=== PATIENT | female | born 1990 | race Caucasian/White ===

== ENCOUNTER 2016-09-19 18:59 | Emergency (ER) | payer BC, OTHER ==
[2016-09-19 19:15] VITALS: BP 109/64
[2016-09-19] MEDS ORDERED: Tetracaine 0.5% OPTH.SOL 4 ML* 1 DROP BTL RIGHT EYE ONE (19:17)
[2016-09-19] MEDS ORDERED: Fluorescein Sodium TOPICAL* 1 MG TEST ONE (19:51)
--- NOTE | 2016-09-19 20:02 | UC ---
Eye Complaint HPI - HPI Summary HPI Summary: 26 yo female got DUONG [employer] splashed in eyes at work today about 540PM . Immediately flushed both eyes left eye stopped burning after flush. Burning eye pain persisted in right eye and she came here. slightly blurred vision no photophobia or FB sensation - History of Current Complaint Chief Complaint: UCEye Stated Complaint: IRRITANT IN EYES Time Seen by Provider: 09/19/16 19:27 Hx Obtained From: Patient Hx Last Menstrual Period: 09/16/16 Onset/Duration: Sudden Onset Timing: Constant Severity Initially: Moderate Severity Currently: Moderate Pain Intensity: 6 Pain Scale Used: 0-10 Numeric Location of Injury: Conjunctiva Aggravating Factor(s): Nothing Alleviating Factor(s): Nothing - Allergies/Home Medications Allergies/Adverse Reactions: Allergies Allergy/AdvReac Type Severity Reaction Status Date / Time Amoxicillin Allergy Unknown Verified 09/19/16 19:15 Reaction Details Penicillins Allergy Unknown Verified 09/19/16 19:15 Reaction Details Home Medications: Home Medications NK [No Home Medications Reported] 09/19/16 [History Confirmed 09/19/16] PMH/Surg Hx/FS Hx/Imm Hx Previously Healthy: Yes Respiratory History Of: Reports: Asthma - Surgical History Surgical History: Yes Surgery Procedure, Year, and Place: T&A age 16. [place] teeth age 16 - Family History Known Family History: Positive: Other - dad with diverticulitis Negative: Cardiac Disease, Hypertension, Diabetes - Social History Alcohol Use: Occasionally Substance Use Type: None Smoking Status (MU): Current Some Day Smoker Review of Systems Constitutional: Negative Skin: Negative Eyes: Blurred Vision ENT: Negative Respiratory: Negative Cardiovascular: Negative Gastrointestinal: Negative Genitourinary: Negative Motor: Negative Neurovascular: Negative Musculoskeletal: Negative Neurological: Negative Psychological: Negative All Other Systems Reviewed And Are Negative: Yes Physical Exam Triage Information Reviewed: Yes Appearance: Well-Appearing, No Pain Distress, Well-Nourished Vital Signs: Initial Vital Signs Temp 98.4 F 09/19/16 19:09 Pulse 63 09/19/16 19:09 Resp 16 09/19/16 19:09 BP 109/64 09/19/16 19:09 Pulse Ox 100 09/19/16 19:09 Vital Signs Reviewed: Yes Eyes: Positive: Other: - after flush normal eye exam, right eye (-) flourescein staining defect ENT: Positive: Hearing grossly normal, Pharynx normal, TMs normal. Negative: Nasal congestion, Nasal drainage, Tonsillar exudate, Trismus, Muffled/hoarse voice Neck: Positive: Supple, Nontender Respiratory: Positive: Lungs clear, Normal breath sounds, No respiratory distress Cardiovascular: Positive: RRR, No Murmur Musculoskeletal: Positive: ROM Intact, No Edema Neurological Exam: Normal Neurological: Positive: Alert Psychological Exam: Normal Skin Exam: Normal Re-Evaluation - Re-Evaluation First Eval Re-Evaluation Time: 20:05 Change: Improved - pain 09/19 Eye Complaint Course/Dx - Course Course Of Treatment: msds reviewed for duong donahue - Differential Dx/Diagnosis Provider Diagnoses: chemical burn right eye Discharge - Discharge Plan Condition: Stable Disposition: HOME Patient Education Materials: Chemical Eye Ramirez (ED) Referrals: Non Staff,Doctor [Primary Care Provider] - Additional Instructions: cool compresses as needed ZADITOR EYE DROP over the counter tylenol or advil recheck tomorrow if not back to normal
== END 2016-09-19 20:10 | disposition home or self-care (01) ==
LOC: UCCORT 18:59
DX: T65.891A Toxic effect of other specified substances, accidental (unintentional), initial encounter (principal); F17.210 Nicotine dependence, cigarettes, uncomplicated; Y92.9 Unspecified place or not applicable; Z88.0 Allergy status to penicillin; Z88.1 Allergy status to other antibiotic agents
CPT/HCPCS: 99212; A9270-GY; G0463

== ENCOUNTER 2016-09-24 09:18 | Emergency (ER) | payer OTHER ==
[2016-09-24 09:42] VITALS: BP 110/64
--- NOTE | 2016-09-24 09:52 | UC ---
Eye Complaint HPI - HPI Summary HPI Summary: The patient comes in today for: 1. Eye discomfort: Onset: Five days ago. Palliative/provocative: Cold compresses helped with the swelling. Quality: Swelling and dry eye sensation. Region: Right eye. Severity: 07/22 Time: Constant. Associated symptoms: Event: Five days ago, while working, she had "[place] [employer]" splashed into her eyes. The "[place] [employer]" was in a bucket. While she was trying to wring out the mop, the wringer handle suddenly gave away and this jostled the bucket leading to some of the fluid to spash out and hit her in the face. Most of the fluid hit her in the right eye. But, she got some in the corner of her left eye. She was not wearing any glasses (safety or regular) or contact. She went immediately to the wash station. She washed for 35 minutes. Then she came here to the urgent care center. She was seen here for a evaluation and was diagnosed as having chemical conjunctivitis with a Zaditor OTC eye drops. She got these drops and were using them about 3 times a day. After her initial eye wash, she felt the right eye was still burning, but the left felt OK. Today, she comes in because below the right eye there is some swelling. She states that the right eye feels dry. Vision is back to normal. - History of Current Complaint Chief Complaint: UCEye Stated Complaint: RE CK EYE,CHEMICAL BURN Time Seen by Provider: 09/24/16 09:33 Hx Obtained From: Patient Hx Last Menstrual Period: 09/10/16 ?: No - Allergies/Home Medications Allergies/Adverse Reactions: Allergies Allergy/AdvReac Type Severity Reaction Status Date / Time Amoxicillin Allergy Unknown Verified 09/24/16 09:31 Reaction Details Penicillins Allergy Unknown Verified 09/24/16 09:31 Reaction Details PMH/Surg Hx/FS Hx/Imm Hx Previously Healthy: No Endocrine History Of: Denies: Diabetes, Thyroid Disease, Hyperthyroidism, Hypothyroidism, Dyslipidemia Cardiovascular History Of: Denies: Cardiac Disorders, Hypertension, Pacemaker/ICD, Myocardial Infarction , Congestive Heart Failure, Atrial Fibrillation, Deep Vein Thrombosis, Bleeding Disorders Respiratory History Of: Reports: Asthma - She has a history of inhaler use. Denies: COPD, Bronchitis, Pneumonia, Pulmonary Embolism GI/ History Of: Denies: Gastroesophageal Reflux, Ulcer, Gastrointestinal Bleed, Gall Bladder Disease, Kidney Stones, Diverticulitis, Renal Disease, Urosepsis Neurological History Of: Reports: Migraine - "I've got chronic headaches." She has seen a specialist and gotten neck In Denies: TIA, CVA, Dementia, Seizures Psychological History Of: Denies: Anxiety, Depression, Bipolar Disorder, Schizophrenia, Post Traumatic Stress Disorder Cancer History Of: Denies: Lung Cancer, Colorectal Cancer, Breast Cancer, Prostate Cancer, Cervical Cancer Other History Of: Negative For: HIV, Hepatitis B, Hepatitis C, Anticoagulant Therapy - Surgical History Surgical History: Yes Surgery Procedure, Year, and Place: T&A age 16. [place] teeth age 16 - Family History Known Family History: Positive: Other - dad with diverticulitis Negative: Cardiac Disease, Hypertension, Diabetes - Social History Alcohol Use: Occasionally Substance Use Type: None Smoking Status (MU): Current Some Day Smoker Review of Systems Constitutional: Negative Skin: Negative Eyes: Negative ENT: Negative Respiratory: Negative Cardiovascular: Negative Gastrointestinal: Negative Genitourinary: Negative All Other Systems Reviewed And Are Negative: Yes Physical Exam Triage Information Reviewed: Yes Appearance: Well-Appearing, No Pain Distress, Well-Nourished Vital Signs: Initial Vital Signs Temp 98.6 F 09/24/16 09:27 Pulse 84 09/24/16 09:27 Resp 16 09/24/16 09:27 BP 110/64 09/24/16 09:27 Pulse Ox 98 09/24/16 09:27 Vital Signs Reviewed: Yes Eyes: Positive: Conjunctiva Clear, Other: - Visual acuity: Right: 20/40 Left: 20/30 Both: 20/30. Negative: Discharge ENT: Positive: Hearing grossly normal. Negative: Pharyngeal erythema, Nasal congestion, Nasal drainage, TM bulging, TM dull, TM red, Tonsillar swelling, Tonsillar exudate Dental: Negative: Gross Decay/Caries @, Dental Fracture @ Neck: Positive: Supple, Nontender, No Lymphadenopathy. Negative: Nuchal Rigidity Respiratory: Positive: Chest non-tender, Lungs clear, No respiratory distress, No accessory muscle use. Negative: Crackles, Wheezing Cardiovascular: Positive: RRR, No Murmur Abdomen Description: Positive: Nontender, No Organomegaly, Soft. Negative: Distended, Guarding Musculoskeletal: Positive: Strength Intact, ROM Intact Neurological: Positive: Alert, Muscle Tone Normal Psychological: Positive: Age Appropriate Behavior, Consolable Skin: Positive: Other - She has a 1 cm erythematous mass (early abscess) of the right cheek below the right eye. There was tenderness, but no fluctuance. There is mild non-indurated swelling of the lower right eye lid. However, this was not tender or red. Eye Complaint Course/Dx - Course Course Of Treatment: Patient told of her right cheek early abscess and how it can be causing her lower right eye lid swelling. She was told how to treat it ( hot compresses, antibiotics). - Differential Dx/Diagnosis Provider Diagnoses: Epidermal cyst, infected, early abscess--right cheek. Discharge - Discharge Plan Condition: Stable Disposition: HOME Patient Education Materials: Abscess (ED) Referrals: Non Staff,Doctor [Medical Doctor] - 1 Week (Please see your primary care provider in later this week or early next week to see how well you are doing. If you get worse, please be seen sooner by us or the ER.) Additional Instructions: Please apply hot compresses (as hot as you can) to the area keeping it hot during a full 20 minutes 4-5 times a day.
== END 2016-09-24 10:12 | disposition home or self-care (01) ==
LOC: UCCORT 09:18
DX: L72.0 Epidermal cyst (principal); L02.01 Cutaneous abscess of face; Z88.0 Allergy status to penicillin; Z72.0 Tobacco use
CPT/HCPCS: 99212; G0463

== ENCOUNTER 2017-04-03 16:13 | Emergency (ER) | payer BC ==
[2017-04-03 16:41] VITALS: BP 114/70
--- NOTE | 2017-04-03 17:15 | UC ---
Throat Pain/Nasal Erasmo HPI - HPI Summary HPI Summary: Sore throat, bilat earache/ears feels clogged and sinus pain/pressure x1 week. States LEFT ear worse than right ear. C/o hot and cold flashes today but unable to check temp. Taking dayquil w/ no relief. [ End ] - History of Current Complaint Chief Complaint: UCRespiratory Stated Complaint: SORE THROAT SINUS EARS Time Seen by Provider: 04/03/17 17:13 Hx Obtained From: Patient Hx Last Menstrual Period: 04/03/17 Onset/Duration: Gradual Onset Severity: Moderate Cough: Productive - Allergies/Home Medications Allergies/Adverse Reactions: Allergies Allergy/AdvReac Type Severity Reaction Status Date / Time Amoxicillin Allergy Unknown Verified 04/03/17 16:32 Reaction Details Penicillins Allergy Unknown Verified 04/03/17 16:32 Reaction Details Home Medications: Home Medications Etonogestrel IMPLANT(NF) [Implanon (NF)-not available] 1 imp ONCE 04/03/17 [ History Confirmed 04/03/17] PMH/Surg Hx/FS Hx/Imm Hx Previously Healthy: Yes Other History Of: Negative For: HIV, Hepatitis B, Hepatitis C, Anticoagulant Therapy - Surgical History Surgical History: Yes Surgery Procedure, Year, and Place: T&A age 16. [place] teeth age 16 - Family History Known Family History: Positive: Other - dad with diverticulitis Negative: Cardiac Disease, Hypertension, Diabetes - Social History Occupation: Employed Full-time Lives: With Family Alcohol Use: Occasionally Substance Use Type: None Smoking Status (MU): Current Some Day Smoker Type: Cigarettes Amount Used/How Often: "couple cigs when I'm stressed" - Immunization History Most Recent Influenza Vaccination: NONE 2017 Review of Systems ENT: Sore Throat, Ear Ache, Nasal Discharge, Sinus Congestion, Sinus Pain/ Tenderness All Other Systems Reviewed And Are Negative: Yes Physical Exam Triage Information Reviewed: Yes Appearance: Well-Appearing, No Pain Distress, Well-Nourished Vital Signs: Initial Vital Signs Temp 97.9 F 04/03/17 16:33 Pulse 80 04/03/17 16:33 Resp 16 04/03/17 16:33 BP 114/70 04/03/17 16:33 Pulse Ox 100 04/03/17 16:33 Vital Signs Reviewed: Yes Eye Exam: Normal ENT: Positive: Pharynx normal, Nasal congestion, Nasal drainage, TM dull, Other : - bilateral maxillary sinus tenderness to palpation Neck exam: Normal Respiratory Exam: Normal Cardiovascular Exam: Normal Musculoskeletal Exam: Normal Neurological Exam: Normal Psychological Exam: Normal Skin Exam: Normal Throat Pain/Nasal Course/Dx - Course Course Of Treatment: treat supportively and if Sx worsen then start abx. she is aware of SE - Differential Dx/Diagnosis Differential Diagnosis/HQI/PQRI: Pharyngitis, Sinusitis, Tonsillitis, URI Provider Diagnoses: Sinusitis Discharge - Discharge Plan Condition: Good Disposition: HOME Prescriptions: Cefdinir [Cefdinir 300 MG CAP] 300 mg PO BID #20 cap Patient Education Materials: Sinusitis (ED) Referrals: Madhu Medel MD [Primary Care Provider] - 3 Days Additional Instructions: As we discussed your symptoms appear to be viral and I advise you try claritin D with flonase in the Am and consider benadryl with netti pot in the PM and if your symptoms worsen or are not improved by day #10 of illness then start the antibiotic.
== END 2017-04-03 17:31 | disposition home or self-care (01) ==
LOC: UCCORT 16:13
DX: J32.9 Chronic sinusitis, unspecified (principal); F17.210 Nicotine dependence, cigarettes, uncomplicated
CPT/HCPCS: 99212; G0463

== ENCOUNTER 2018-07-19 15:43 | Emergency (ER) | payer BC ==
[2018-07-19 17:34] VITALS: BP 129/75
--- NOTE | 2018-07-19 17:58 | UC ---
Throat Pain/Nasal Erasmo HPI - HPI Summary HPI Summary: 28 y/o female presents to the urgent care c/o sore thrao, headache, chills, B/L ear pressure and pain for the past 4 days. Pt states swollen neck glans and pain w/ swallowing is 4/10. She has been taking Dayquill PO and Nyquill PO to alleviate symptoms w/o any improvement. Pt has not taking influenza vaccine lately. Pt denies fever, but had chills yesterday. Pt denies SOB, wheezing, chest pain, abdominal pain, N/v/D. - History of Current Complaint Chief Complaint: UCRespiratory Stated Complaint: SINUS CONGESTION, SORE THROAT Time Seen by Provider: 07/19/18 17:51 Hx Obtained From: Patient Hx Last Menstrual Period: now Onset/Duration: Gradual Onset, Lasting Days - 4 days, Still Present, Worse Since - today Severity: Moderate Pain Intensity: 4 Pain Scale Used: 0-10 Numeric Cough: Nonproductive Associated Signs & Symptoms: Positive: Dysphagia, Sinus Discomfort, Nasal Discharge - clear, Other - chills. Negative: Fever - Epiglottits Risk Factors Epiglottis Risk Factors: Negative - Allergies/Home Medications Allergies/Adverse Reactions: Allergies Allergy/AdvReac Type Severity Reaction Status Date / Time amoxicillin Allergy Unknown Verified 07/19/18 17:36 Reaction Details Penicillins Allergy Unknown Verified 07/19/18 17:36 Reaction Details Home Medications: Home Medications D-Methorphan/PE/Acetaminophen [Vicks Dayquil Liquid] 1 liq PO DAILY PRN [History Confirmed 07/19/18] Dm/Acetaminophen/Doxylamine [Vicks Nyquil Cold-Flu Liquid] 1 liq PO DAILY PRN [History Confirmed 07/19/18] PMH/Surg Hx/FS Hx/Imm Hx Previously Healthy: Yes - Pt denies PMHX Other History Of: Negative For: HIV, Hepatitis B, Hepatitis C, Anticoagulant Therapy - Surgical History Surgical History: Yes Surgery Procedure, Year, and Place: T&A age 16. [place] teeth age 16 - Family History Known Family History: Positive: None Negative: Cardiac Disease, Hypertension, Diabetes Family History: dad with diverticulitis - Social History Occupation: Employed Full-time Lives: With Family Alcohol Use: Rare Substance Use Type: None Smoking Status (MU): Former Smoker Type: Cigarettes Amount Used/How Often: "couple cigs when I'm stressed" - Immunization History Most Recent Influenza Vaccination: NONE 2017 Review of Systems All Other Systems Reviewed And Are Negative: Yes Constitutional: Positive: Chills, Other - body ahces Skin: Positive: Negative Eyes: Positive: Negative ENT: Positive: Sore Throat, Ear Ache - B/L ear pressure and pain, Nasal Discharge, Sinus Congestion, Sinus Pain/Tenderness Respiratory: Positive: Cough - dry Cardiovascular: Positive: Negative Gastrointestinal: Positive: Negative Genitourinary: Positive: Negative Motor: Positive: Negative Neurovascular: Positive: Negative Musculoskeletal: Positive: Negative Neurological: Positive: Headache Psychological: Positive: Negative Is Patient Immunocompromised?: No Physical Exam - Summary Physical Exam Summary: VITAL SIGNS: Reviewed. GENERAL: Patient is a well developed and nourished female who is sitting comfortable in the examining table. Patient is not in any acute respiratory distress. HEAD AND FACE: No signs of trauma. No ecchymosis, hematomas or skull depressions. B/L sinus maxillary and frontal No sinus tenderness. w/ clear nasal discharge EYES: PERRLA, EOMI x 2, No injected conjunctiva, no nystagmus. No photophobia. EARS: Hearing grossly intact. B/L external Ear canals WNL. LF TM injected w/ erythema and mild discharge. . MOUTH: Positive pharynx with erythema, mild exudates, mild palatal petechiae. B /L tonsillar enlargement with exudate. Uvula in midline. NECK: Supple, trachea is midline, Positive anterior cervical lymphadenopathy, no JVD, no carotid bruit, no c-spine tenderness, neck with full ROM. No meningeal signs, no Kernig's or brudzinskis signs. CHEST: Symmetric, no tenderness at palpation LUNGS: Clear to auscultation bilaterally. No wheezing or crackles. CVS: Regular rate and rhythm, S1 and S2 present, no murmurs or gallops appreciated. ABDOMEN: Soft, non-tender. No signs of distention. No rebound no guarding, and no masses palpated. Bowel sounds are normal. EXTREMITIES: FROM in all major joints, no edema, no cyanosis or clubbing. NEURO: Alert and oriented x 3. No acute neurological deficits. Speech is normal and follows commands. SKIN: Dry and warm Triage Information Reviewed: Yes Vital Signs: Initial Vital Signs Temp 98.8 F 07/19/18 17:29 Pulse 102 07/19/18 17:29 Resp 20 07/19/18 17:29 BP 129/75 07/19/18 17:29 Pulse Ox 100 07/19/18 17:29 Throat Pain/Nasal Course/Dx - Course Course Of Treatment: 28 y/o female presents to the urgent care c/o sore thrao, headache, chills, B/L ear pressure and pain for the past 4 days. Pt states swollen neck glans and pain w/ swallowing is 4/10. She has been taking Dayquill PO and Nyquill PO to alleviate symptoms w/o any improvement. Pt has not taking influenza vaccine lately. Pt denies fever, but had chills yesterday. Pt denies SOB, wheezing, chest pain, abdominal pain, N/v/D. Hx obtained. Pt w/left otitis media, and sinusitis on examination. Rapid strep ordered: negative, Influenza A& B orednered: negative. Pt PCN allergic. Pt Rx Z-gennaro and flonase nasal spray. Advised to take Ibuprofen PO to alleivate symptoms Discharge instructions explained to Pt. Advised to Return to the clinic or PCP if symptoms do not improve.Pt understood and agreed with plan of care. - Differential Dx/Diagnosis Differential Diagnosis/HQI/PQRI: Influenza, Laryngitis, Otitis Media, Pharyngitis, Sinusitis, Tonsillitis, URI Provider Diagnosis: Left otitis media, Acute bacterial sinusitis Discharge - Sign-Out/Discharge Documenting (check all that apply): Patient Departure - D/C home All imaging exams completed and their final reports reviewed: No Studies - Discharge Plan Condition: Stable Disposition: HOME Prescriptions: Azithromyxin GENNARO (NF) [Z-Gennaro (Zithromax) 250 mg tabs #6] 2 tab PO .TODAY, THEN 1 DAILY #6 tab Fluticasone NASAL SPRAY 50MCG* [Flonase NASAL SPRAY 50MCG*] 2 spray BOTH NARES DAILY #1 btl Patient Education Materials: Sinusitis (ED), Ear Infection (ED) Referrals: [facility] [place] [facility]IAN REFERRAL [Outside] - 3 Days Additional Instructions: 1- Please increase fluid intake and rest. take full course of antibiotic to avoid resistance to alleviate ear infection and symptoms 2-Use Flonase as directed to help drain fluid. Also buy saline drops to clear sinuses 3-Take Ibuprofen PO q6-8hrs prn after meals to alleviate pain 4-Return to the clinic or PCP in 3 days if symptoms do not improve for further management and treatment - Billing Disposition and Condition Condition: STABLE Disposition: Home
== END 2018-07-19 18:28 | disposition home or self-care (01) ==
LOC: UCCORT 15:43
DX: H66.92 Otitis media, unspecified, left ear (principal); J01.90 Acute sinusitis, unspecified; B96.89 Other specified bacterial agents as the cause of diseases classified elsewhere; Z88.0 Allergy status to penicillin; Z87.891 Personal history of nicotine dependence
CPT/HCPCS: 87651; 99212; G0463

== ENCOUNTER 2018-10-23 15:02 | Emergency (ER) | payer BC ==
--- NOTE | 2018-10-23 15:15 | UC ---
Throat Pain/Nasal Erasmo HPI - HPI Summary HPI Summary: 28 yo female presents with sinus pain/pressure/congestion, b/l earache, and sore throat for the last week. She has been taking tylencol cold medicine OTC with little relief. She has felt hot/cold, but has not taken her temperature. Denies cough, rash, abdominal pain, n/v. - History of Current Complaint Stated Complaint: NASAL CONGESTION/EAR PAIN Time Seen by Provider: 10/23/18 15:14 Hx Obtained From: Patient Hx Last Menstrual Period: now Onset/Duration: Gradual Onset Severity: Moderate Pain Intensity: 5 Pain Scale Used: 0-10 Numeric - Allergies/Home Medications Allergies/Adverse Reactions: Allergies Allergy/AdvReac Type Severity Reaction Status Date / Time amoxicillin Allergy Swelling Verified 10/23/18 15:16 Of Face,Lips,& Throat Penicillins Allergy Swelling Verified 10/23/18 15:16 Of Face,Lips,& Throat PMH/Surg Hx/FS Hx/Imm Hx - Additional Past Medical History Additional PMH: None Other History Of: Negative For: HIV, Hepatitis B, Hepatitis C, Anticoagulant Therapy - Surgical History Surgical History: Yes Surgery Procedure, Year, and Place: T&A age 16. [place] teeth age 16 - Family History Known Family History: Positive: None, Other - dad with diverticulitis Negative: Cardiac Disease, Hypertension, Diabetes Family History: dad with diverticulitis - Social History Alcohol Use: Rare Substance Use Type: None Smoking Status (MU): Former Smoker Type: Cigarettes Amount Used/How Often: "couple cigs when I'm stressed" - Immunization History Most Recent Influenza Vaccination: NONE 2017 Review of Systems All Other Systems Reviewed And Are Negative: Yes Constitutional: Positive: Negative Skin: Positive: Negative Eyes: Positive: Negative ENT: Positive: Sore Throat, Ear Ache, Nasal Discharge, Sinus Congestion, Sinus Pain/Tenderness Respiratory: Positive: Negative Cardiovascular: Positive: Negative Gastrointestinal: Positive: Negative Neurological: Positive: Negative Psychological: Positive: Negative Physical Exam - Summary Physical Exam Summary: GENERAL: NAD. WDWN. No pain distress. SKIN: No rashes, sores, lesions, or open wounds. HEENT: Head: AT/NC Eyes: EOM intact. Conjunctiva clear without inflammation or discharge. Ears: Hearing grossly normal. TMs intact, no bulging, erythema, or edema. Nose: Nasal mucosa mildly swollen and erythematous without discharge. TTP maxillary and frontal sinus. Positive post nasal drip Throat: Posterior oropharynx without exudates, erythema, or tonsillar enlargement. Uvula midline. NECK: Supple. Nontender. No lymphadenopathy. CHEST: CTAB. No r/r/w. No accessory muscle use. Breathing comfortably and in no distress. CV: RRR. Without m/r/g. Pulses intact. NEURO: Alert. PSYCH: Age appropriate behavior. Triage Information Reviewed: Yes Vital Signs: Vital Signs: Temp Pulse Resp BP Pulse Ox 98.7 F 93 16 109/77 98 10/23/18 15:17 10/23/18 15:17 10/23/18 15:17 10/23/18 15:17 10/23/18 15:17 Vital Signs Reviewed: Yes Throat Pain/Nasal Course/Dx - Course Course Of Treatment: Sinusitis - Differential Dx/Diagnosis Provider Diagnosis: Sinusitis Discharge - Sign-Out/Discharge Documenting (check all that apply): Patient Departure All imaging exams completed and their final reports reviewed: No Studies - Discharge Plan Condition: Stable Disposition: HOME Prescriptions: Azithromycin TAB* [Zithromax TAB (Z-GENNARO) 250 mg #6 tabs] 2 tab PO .TODAY, THEN 1 DAILY #1 gennaro Patient Education Materials: Sinusitis (ED) Referrals: Davy Mcknight MD [Primary Care Provider] - Additional Instructions: If you develop a fever, shortness of breath, chest pain, new or worsening symptoms - please call your PCP or go to the ED. Continue taking the [id number] medications to help with your symptoms. - Billing Disposition and Condition Condition: STABLE Disposition: Home
[2018-10-23 15:19] VITALS: BP 109/77
== END 2018-10-23 15:28 | disposition home or self-care (01) ==
LOC: UCCORT 15:02
DX: J32.9 Chronic sinusitis, unspecified (principal); Z87.891 Personal history of nicotine dependence; Z88.0 Allergy status to penicillin
CPT/HCPCS: 99212; G0463